=== PATIENT | male | born 1970 | race Two or more races ===

== ENCOUNTER 2022-05-01 19:02 | Emergency (ER) | payer OTHER ==
[~2022-05-01] VITALS: Ht 162.6 cm; Wt 65.0 kg
[2022-05-02 01:03] LABS: Basophils # (auto) 0.1 10 ^3/uL (0-0.2); Eosinophils # (auto) 0.2 10 ^3/uL (0-0.8); Eosinophils % (auto) 3.3 % (0.0-7.0); Hematocrit 45.6 % (41.0-53.0); Hemoglobin 14.3 g/dL (13.5-17.5); Lymphocytes # (auto) 2.1 10 ^3/uL (0.4-5.4); Mean Corpuscular Hemoglobin 26.9 pg (28.0-32.0); Mean Corpuscular Hgb Conc. 31.4 g/dL (32.0-36.0); Mean Corpuscular Volume 85.6 fL (80.0-100.0); Monocytes # (auto) 0.6 10 ^3/uL (0-1.3); Monocytes % (auto) 9.3 % (0.0-12.0); Neutrophils # (auto) 3.2 10 ^3/uL (1.6-8.6); Neutrophils % (auto) 52.4 % (37.0-80.0); Nucleated Red Blood Cells % 0.1 %; Red Blood Cells 5.33 10^6/uL (4.5-5.90); White Blood Cell 6.2 10^3/uL (4.4-10.8)
[2022-05-02 01:15] LABS: BUN/Creatinine Ratio 7.5; Calcium 9.7 mg/dL (8.5-10.1); Potassium 4.5 mmol/L (3.5-5.1)
[2022-05-02 01:18] LABS: Bilirubin, Total 0.6 mg/dL (0.2-1.0); Total Protein 7.8 g/dL (6.4-8.2)
[2022-05-02 04:02] VITALS: BP 149/89
== END 2022-05-02 06:45 | disposition home or self-care (01) ==
LOC: ER 19:02
DX: S16.1XXA Strain of muscle, fascia and tendon at neck level, initial encounter (principal); R19.09 Other intra-abdominal and pelvic swelling, mass and lump; V40.9XXA Unspecified car occupant injured in collision with pedestrian or animal in traffic accident, initial encounter; Y93.89 Activity, other specified; Y92.89 Other specified places as the place of occurrence of the external cause; Y99.8 Other external cause status
CPT/HCPCS: 36415; 70450; 71250; 72125; 73562; 74176; 80053; 83690; 84484; 85025